=== PATIENT | male | born 1985 | race Caucasian/White ===

== ENCOUNTER 2018-09-12 20:24 | Emergency (ER) | payer BC, OTHER ==
[~2018-09-12] VITALS: Ht 180.3 cm; Wt 72.5 kg
[2018-09-12 20:29] VITALS: Ht 180.3 cm; Wt 72.5 kg
--- NOTE | 2018-09-13 00:18 | ERD ---
ER Documentation Chief Complaint Chief Complaint STATES SUICIDAL IDEATION, WANTS TO STAB SELF HPI 33-year-old male with a history of suicidal ideations, who presented in triage. At the time the patient presented with a knife, stating that he wanted to stab himself, he appeared agitated, he is currently homeless, he denies a psychiatric history. ROS All systems reviewed and are negative except as per history of present illness. Medications Home Meds No Active Prescriptions or Reported Meds Allergies Allergies: Coded Allergies: No Known Allergy (Unverified , 09/12/18) PMhx/Soc Medical and Surgical Hx: pt denies Medical Hx, pt denies Surgical Hx Hx Alcohol Use: Yes Hx Substance Use: Yes (METHAMPHETAMINE) Hx Tobacco Use: Yes Smoking Status: Current some day smoker Physical Exam Vitals Vital Signs Date Temp Pulse Resp B/P (MAP) Pulse Ox O2 O2 Flow FiO2 Time Delivery Rate 09/12/18 98.2 98 21 142/71 100 20:29 (94) Physical Exam Const: Disheveled appearing, lying in gurney, in no apparent distress Head: Atraumatic Eyes: Normal conjunctiva ENT: Normal external ears, nose and mouth. Neck: Resp: Normal respiratory effort Cardio: Regular rate and rhythm Abd: Soft nondistended Skin: Warm and dry no rash Back: Ext: No cyanosis or edema Neur: Awake and alert Psych: Patient suicidal, agitated Result Diagram: 09/12/18211609/12/182116 Results 24 hrs Laboratory Tests Test 09/12/18 21:10 09/12/18 21:17 Urine Color YELLOW Urine Clarity CLEAR Urine pH 6.0 Urine Specific [place] 1.020 Urine Ketones NEGATIVE mg/dL Urine Nitrite NEGATIVE mg/dL Urine Bilirubin NEGATIVE mg/dL Urine Urobilinogen NEGATIVE mg/dL Urine Leukocyte Esterase NEGATIVE Jewels/ul Urine Hemoglobin NEGATIVE mg/dL Urine Glucose NEGATIVE mg/dL Urine Total Protein NEGATIVE mg/dl Urine Opiates Screen Negative Urine Barbiturates Negative Urine Amphetamines Screen POSITIVE Urine Benzodiazepines Screen Negative Urine Cocaine Screen Negative Urine Cannabinoids Positive White Blood Count 4.4 10^3/ul Red Blood Count 4.64 10^6/ul Hemoglobin 13.3 g/dl Hematocrit 40.3 % Mean Corpuscular Volume 86.9 fl Mean Corpuscular Hemoglobin 28.7 pg Mean Corpuscular Hemoglobin Concent 33.0 g/dl Red Cell Distribution Width 12.9 % Platelet Count 373 10^3/UL Mean Platelet Volume 9.2 fl Immature Granulocytes % 0.200 % Neutrophils % 41.4 % Lymphocytes % 47.1 % Monocytes % 5.3 % Eosinophils % 5.3 % Basophils % 0.7 % Nucleated Red Blood Cells % 0.0 /100WBC Immature Granulocytes # 0.010 10^3/ul Neutrophils # 1.8 10^3/ul Lymphocytes # 2.1 10^3/ul Monocytes # 0.2 10^3/ul Eosinophils # 0.2 10^3/ul Basophils # 0.0 10^3/ul Nucleated Red Blood Cells # 0.0 10^3/ul Sodium Level 141 mmol/L Potassium Level 4.4 mmol/L Chloride Level 107 mmol/L Carbon Dioxide Level 27 mmol/L Anion Gap 7 Blood Urea Nitrogen 13 mg/dl Creatinine 0.61 mg/dl Est Glomerular Filtrat Rate mL/min > 60 mL/min Glucose Level 83 mg/dl Calcium Level 9.3 mg/dl Total Bilirubin 0.1 mg/dl Direct Bilirubin 0.00 mg/dl Indirect Bilirubin 0.1 mg/dl Aspartate Amino Transf (AST/SGOT) 25 IU/L Alanine Aminotransferase (ALT/SGPT) 17 IU/L Alkaline Phosphatase 93 IU/L Total Protein 7.3 g/dl Albumin 4.0 g/dl Globulin 3.30 g/dl Albumin/Globulin Ratio 1.21 Salicylates Level < 1.0 mg/dl Acetaminophen Level < 10.0 ug/ml Ethyl Alcohol Level < 10.0 mg/dl Procedures/MDM 33-year-old male presents for evaluation of suicidal ideations. Patient presents without fever, with no acute medical complaints, he has no apparent toxidrome symptoms on evaluation. His urine toxicology was positive for amphetamine, at this point he is medically cleared, awaiting psychiatric evaluation, will sign out to oncoming doctor, for concern for danger to self, versus grave disability with possible psychosis. Departure Diagnosis: Primary Impression: Suicidal ideation Condition: KATERINE Ordaz MD September 13, 2018 00:18
--- NOTE | 2018-09-13 00:26 | PSY ---
Date/Time of Note Date/Time of Note DATE: 09/13/18 TIME: 00:21 Psychiatric Subjective Eval Consent Pt consented to telemedicine: Yes Subjective Evaluation Patient location: emergency Chief Complaint: STATES SUICIDAL IDEATION, WANTS TO STAB SELF Medical history Problems Medical Problems: (1) Suicidal ideation Status: Acute Allergies: Coded Allergies: No Known Allergy (Unverified , 09/12/18) Psychiatric Objective Eval Mental Status Examination: Laboratory Results Laboratory Tests Test 09/12/18 21:10 09/12/18 21:17 Urine Color YELLOW Urine Clarity CLEAR Urine pH 6.0 Urine Specific [place] 1.020 Urine Ketones NEGATIVE mg/dL Urine Nitrite NEGATIVE mg/dL Urine Bilirubin NEGATIVE mg/dL Urine Urobilinogen NEGATIVE mg/dL Urine Leukocyte Esterase NEGATIVE Jew[place]/ul Urine Hemoglobin NEGATIVE mg/dL Urine Glucose NEGATIVE mg/dL Urine Total Protein NEGATIVE mg/dl Urine Opiates Screen Negative Urine Barbiturates Negative Urine Amphetamines Screen POSITIVE Urine Benzodiazepines Screen Negative Urine Cocaine Screen Negative Urine Cannabinoids Positive White Blood Count 4.4 10^3/ul Red Blood Count 4.64 10^6/ul Hemoglobin 13.3 g/dl Hematocrit 40.3 % Mean Corpuscular Volume 86.9 fl Mean Corpuscular Hemoglobin 28.7 pg Mean Corpuscular Hemoglobin Concent 33.0 g/dl Red Cell Distribution Width 12.9 % Platelet Count 373 10^3/UL Mean Platelet Volume 9.2 fl Immature Granulocytes % 0.200 % Neutrophils % 41.4 % Lymphocytes % 47.1 % Monocytes % 5.3 % Eosinophils % 5.3 % Basophils % 0.7 % Nucleated Red Blood Cells % 0.0 /100WBC Immature Granulocytes # 0.010 10^3/ul Neutrophils # 1.8 10^3/ul Lymphocytes # 2.1 10^3/ul Monocytes # 0.2 10^3/ul Eosinophils # 0.2 10^3/ul Basophils # 0.0 10^3/ul Nucleated Red Blood Cells # 0.0 10^3/ul Sodium Level 141 mmol/L Potassium Level 4.4 mmol/L Chloride Level 107 mmol/L Carbon Dioxide Level 27 mmol/L Anion Gap 7 Blood Urea Nitrogen 13 mg/dl Creatinine 0.61 mg/dl Est Glomerular Filtrat Rate mL/min > 60 mL/min Glucose Level 83 mg/dl Calcium Level 9.3 mg/dl Total Bilirubin 0.1 mg/dl Direct Bilirubin 0.00 mg/dl Indirect Bilirubin 0.1 mg/dl Aspartate Amino Transf (AST/SGOT) 25 IU/L Alanine Aminotransferase (ALT/SGPT) 17 IU/L Alkaline Phosphatase 93 IU/L Total Protein 7.3 g/dl Albumin 4.0 g/dl Globulin 3.30 g/dl Albumin/Globulin Ratio 1.21 Salicylates Level < 1.0 mg/dl Acetaminophen Level < 10.0 ug/ml Ethyl Alcohol Level < 10.0 mg/dl Assessment and Plan Recommendation/Plan Discharge Disposition: Psychiatric inpatient Legal Status: Place involuntary hold Assessment Additional comments: IDENTIFYING INFORMATION: 33 year old Male patient who is currently located at the hospital and for whom psychiatric consultation was requested. SOURCES OF INFORMATION: The patient who appears to be somewhat reliable and the medical records; the nursing staff. CHIEF COMPLAINT: "my mom told me". HISTORY OF PRESENT ILLNESS: The patient was interviewed via telemedicine in the presence of and under the supervision of nursing staff of the hospital. The consent to conducting this interview via telemedicine was obtained by the nursing staff at the hospital. BROOKS Yung reports that the patient presented with SI with plan to run into traffic. Was found carrying a knife near the ICU at the hospital. Has been tangential at times. Is not on a 5150 hold. The patient reports having SI, AH, delusions of people being after him. The patient denies using alcohol heavily or regularly. The patient reports using MJ and meth almost daily. Last use was a few days ago. The patient denies using any other substances. In terms of past psychiatric history, the patient reports having a history of past psychiatric hospitalizations. The patient reports having a history of no past suicide attempts. PAST MEDICAL HISTORY: none. CURRENT MEDICATIONS: none. ALLERGIES TO MEDICATIONS: NKDA. LABORATORY TESTS: CBC with WBCs 4.4, H/H 13.3/40.3, , CMP wnl, UDS + amph, MJ, alcohol level -. SOCIAL HISTORY: lives with parents, no kids, not employed. REVIEW OF SYSTEMS: Constitutional (e.g., fever, weight loss): negative; Eyes, Ears, Nose, Mouth, Throat: negative; Cardiovascular: negative; Respiratory: negative; Gastrointestinal: negative; Genitourinary: negative; Musculoskeletal: negative; Integumentary (skin and/or breast): negative; Neurological: negative; Psychiatric: as per HPI; Endocrine: negative; Hematologic/Lymphatic: negative; Allergic/Immunologic: negative. MENTAL STATUS EXAMINATION: General Appearance and Behavior: anxious, cooperative with the interview, pleasant with the current interviewer, makes fair eye contact, fairly groomed, no abnormal movements noted, Speech: Regular rate, regular rhythm, normal latency, normal volume, somewhat decreased amount, Flow of thought: sequential, logical, goal-directed at times, illogical at times, Content of thought: + auditory hallucinations, no visual hallucinations, + delusions, positive for suicidal ideation; no homicidal ideation, Mood: "depressed", Affect: dysthymic, dysphoric, not reactive, Attention: normal based on the interview, Insight: poor, Judgment: poor, Memory: normal based on the interview, Sensorium: alert and oriented to person, place and date. ASSESSMENT: The patient's presentation and history are consistent with the diagnosis of unspecified psychotic disorder, stimulant use disorder, cannabis use disorder. The patient presents with an exacerbation of psychosis in the context of medication noncompliance, psychosocial stressors and substance use. PLAN: - Medication management: Would start haloperidol 5 mg IM PRN severe agitation q4 hours. Would start diphenhydramine 50 mg IM PRN severe agitation q4 hours. Would start lorazepam 2 mg IM PRN severe agitation q4 hours Will defer to the inpatient psychiatry team for other medication changes. - Labs: No other laboratory tests are needed at this time. - Psychotherapy: Provided supportive psychotherapy and psychoeducation. - Disposition: Would recommend involuntary admission to the inpatient psychiatric unit given the severity of the patient's psychiatric condition and the fact that the patient is an imminent danger to self and/or others so long as the patient has been cleared medically for admission to psychiatry. Inpatient psychiatric admission is at this time the least restrictive environment where the patient can receive the psychiatric care that is needed. Would place on suicide precautions. The patient fulfills criteria for being placed on an involuntary hold for being a danger to self due to a psychiatric disorder. Discussed about the above plan with Dr. Mcdonnell. ARLENE RODRIGUEZ MD September 13, 2018 00:26
--- NOTE | 2018-09-13 11:16 | PSY ---
Date/Time of Note Date/Time of Note DATE: 09/13/18 TIME: 11:12 Psychiatric Subjective Eval Consent Pt consented to telemedicine: Yes Subjective Evaluation Patient location: emergency Chief Complaint: STATES SUICIDAL IDEATION, WANTS TO STAB SELF History of present illness "I am this close to killing myself because nobody loves me anymore" 33 yo single unemployed homeless male on 5150 for DTs after he was found carrying a knife near the ICU. Pt was evalauted by telepsych, inpt transfer was recommended. Pt says he is suicidal, his plan is to walk onto freeway. Says he is depressed because no one loves him, no one wants to give him a job. + Ah + paranoia, no HI. NO meds. Past psychiatric history prior inpt Hospitalization: Suicidal Attempt(s) Medical history Problems Medical Problems: (1) Suicidal ideation Status: Acute Allergies: Coded Allergies: No Known Allergy (Unverified , 09/12/18) Substance Abuse Substance abuse history: Yes Prior substance abuse treatmen: Yes Social History Marital status: single Level of education: 11th grade DPA/Conservatorship: No Occupation/Fpc: unemployed, homeless Psychiatric Objective Eval Review of Systems: Review of Systems: Not Applicable Physical Examination: Interest: Decreased Mental Status Examination: Appearance: Disheveled Eye Contact: Good Psychomotor Activity: Normal Behavior: Cooperative Speech: Clear AFFECT: Anxious Mood: Anxious Though Process: Tangential Thought Content: Delusions, Hallucinations Suicidal: Yes Homicidal: No On 72 hour hold: Yes Orientation: x3 Cognition: Alert Insight: Impared Judgement: Impared Laboratory Results Laboratory Tests Test 09/12/18 21:10 09/12/18 21:17 Urine Color YELLOW Urine Clarity CLEAR Urine pH 6.0 Urine Specific [place] 1.020 Urine Ketones NEGATIVE mg/dL Urine Nitrite NEGATIVE mg/dL Urine Bilirubin NEGATIVE mg/dL Urine Urobilinogen NEGATIVE mg/dL Urine Leukocyte Esterase NEGATIVE Jew[place]/ul Urine Hemoglobin NEGATIVE mg/dL Urine Glucose NEGATIVE mg/dL Urine Total Protein NEGATIVE mg/dl Urine Opiates Screen Negative Urine Barbiturates Negative Urine Amphetamines Screen POSITIVE Urine Benzodiazepines Screen Negative Urine Cocaine Screen Negative Urine Cannabinoids Positive White Blood Count 4.4 10^3/ul Red Blood Count 4.64 10^6/ul Hemoglobin 13.3 g/dl Hematocrit 40.3 % Mean Corpuscular Volume 86.9 fl Mean Corpuscular Hemoglobin 28.7 pg Mean Corpuscular Hemoglobin Concent 33.0 g/dl Red Cell Distribution Width 12.9 % Platelet Count 373 10^3/UL Mean Platelet Volume 9.2 fl Immature Granulocytes % 0.200 % Neutrophils % 41.4 % Lymphocytes % 47.1 % Monocytes % 5.3 % Eosinophils % 5.3 % Basophils % 0.7 % Nucleated Red Blood Cells % 0.0 /100WBC Immature Granulocytes # 0.010 10^3/ul Neutrophils # 1.8 10^3/ul Lymphocytes # 2.1 10^3/ul Monocytes # 0.2 10^3/ul Eosinophils # 0.2 10^3/ul Basophils # 0.0 10^3/ul Nucleated Red Blood Cells # 0.0 10^3/ul Sodium Level 141 mmol/L Potassium Level 4.4 mmol/L Chloride Level 107 mmol/L Carbon Dioxide Level 27 mmol/L Anion Gap 7 Blood Urea Nitrogen 13 mg/dl Creatinine 0.61 mg/dl Est Glomerular Filtrat Rate mL/min > 60 mL/min Glucose Level 83 mg/dl Calcium Level 9.3 mg/dl Total Bilirubin 0.1 mg/dl Direct Bilirubin 0.00 mg/dl Indirect Bilirubin 0.1 mg/dl Aspartate Amino Transf (AST/SGOT) 25 IU/L Alanine Aminotransferase (ALT/SGPT) 17 IU/L Alkaline Phosphatase 93 IU/L Total Protein 7.3 g/dl Albumin 4.0 g/dl Globulin 3.30 g/dl Albumin/Globulin Ratio 1.21 Salicylates Level < 1.0 mg/dl Acetaminophen Level < 10.0 ug/ml Ethyl Alcohol Level < 10.0 mg/dl Assessment and Plan Assessment/Diagnosis Diagnosis UNSPECIFIED PSYCHOSIS. AMPHETAMINE TYPE SUBSTANCE USE DISORDER. Recommendation/Plan Medication Management ZYPREXA 10 MG POQHS Multiple antipsychotics: Yes Discharge Disposition: Psychiatric inpatient Legal Status: Continue involuntary hold ROSARIO PLATA MD September 13, 2018 11:16
--- NOTE | 2018-09-13 12:26 | EN ---
Date/Time of Note Date/Time of Note DATE: 09/13/18 TIME: 12:25 ER Progress Note 33-year-old male continues to intermittently express suicidal ideation with a somewhat tangential thought process. Patient presents with no acute medical complaints at this time. Objectively, patient is hemodynamically stable and medically clear. On psychiatric reevaluation he is a somewhat pressured speech and tangential thought process and intermittent he describes suicidal thoughts. Patient has no agitation at this time. He has no significant insight. Course: Repeat tele-psych evaluation was appreciated still recommending a 5150 hold. At this time, patient will remain under observation until such time as we can have him reevaluated and consideration of placement. Diagnosis: Methamphetamine abuse Suicidal ideation Plan: Patient will continue under observation with medication and as-needed basis pending formal psychiatric evaluation and placement. SARAH TONG September 13, 2018 12:26
[2018-09-14 05:32] VITALS: BP 112/74; PULSE 69; RESP 16
== END 2018-09-14 05:34 ==
LOC: E/R 20:24
DX: R45.851 Suicidal ideations (principal); F17.210 Nicotine dependence, cigarettes, uncomplicated
CPT/HCPCS: 36415; 80053; 80307; 81003; 85025; Z7502